=== PATIENT | male | born 1945 | race Caucasian/White ===

== ENCOUNTER 2018-03-15 06:36 | Day surgery (SDC) | payer MEDICARE, OTHER ==
[~2018-03-15 06:36] MED LIST: ACETAMINOPHEN 1,000 MG/100 ML BTL IV ONE
[2018-03-15] MEDS ORDERED: KETOROLAC 30 MG/ML VIAL IVP ONE (06:37)
[2018-03-15] MEDS ORDERED: MIDAZOLAM HCL 2MG/2ML VIAL IV ONE (06:37)
[2018-03-15] MEDS ORDERED: BUPIVACAINE 0.5% W/EPI MPF 30 ML VIAL IVP ONE (06:37)
[2018-03-15] MEDS ORDERED: LABETALOL HCL 5MG/ML, 20ML VIAL IV ONE (06:37)
[2018-03-15] MEDS ORDERED: BUPIVACAINE 0.5% (5MG/ML) PF 30ML VIAL IVP ONE (06:37)
[2018-03-15] MEDS ORDERED: DEXAMETHASONE 4 MG/ML 1ML VIAL IVP ONE ×2 (06:37)
[2018-03-15] MEDS ORDERED: GLYCOPYRROLATE 0.2 MG/ML ML IV ONE (06:37)
[2018-03-15] MEDS ORDERED: BUPIVACAINE LIPOSOME/PF 133MG/10ML VIAL IV ONE (06:37)
[2018-03-15] MEDS ORDERED: PROPOFOL 10 MG/ML VIAL IV ONE (06:37)
[2018-03-15] MEDS ORDERED: CEFAZOLIN 2 Gram 2 GM/50 ML BAG IVPB ONE (06:37)
[2018-03-15] MEDS ORDERED: MORPHINE SULFATE PF 10MG/10ML VIAL IV ONE (06:37)
[2018-03-15] MEDS ORDERED: KETAMINE HCL 100MG/1ML VIAL INJ ONE (06:37)
--- NOTE | 2018-03-16 08:40 | Operative Note ---
DATE OF SURGERY: 03/15/2018 PREOPERATIVE DIAGNOSIS: Left shoulder impingement. POSTOPERATIVE DIAGNOSES: 1. Partial tear of the long head of the biceps tendon, left shoulder. 2. Moderate synovitis, left shoulder. 3. Profound external impingement, left shoulder. 4. Arthrosis left distal clavicle. OPERATION: 1. Left shoulder arthroscopy with interarticular debridement and synovectomy. 2. Left shoulder open acromioplasty, CA ligament resection, subacromial bursectomy. 3. Left shoulder distal clavicle resection. Staff Surgeon: Jameson Guzman MD Anesthesia: Scalene block with sedation. Individual Considerations: None. PROCEDURE: The patient was taken to the operating room, placed supine on the operating room table. He had had a prior induction of a block along with given IV sedation. He was then placed in a semi-seated beach chair position. His left arm and shoulder were prepped and draped in the usual fashion. The patient had a posterior portal identified for arthroscopy. Skin was infiltrated with 0.5% Marcaine with epinephrine prior. An 18-gauge spinal needle was easily placed in the joint, and the joint was inflated with normal saline with a 60-mL syringe. A stab wound was made, and a blunt-tipped trocar for the scope was placed in the joint. The joint was inflated with normal saline. An anterior accessory portal was then made just inferior to the intact long head of the biceps tendon in a retrograde fashion with a Wissinger cooper, and the joint was irrigated out. The patient had an obvious partial tear of the long head of the biceps tendon with an unstable flap I would say involving about 20% of the tendon. This was debrided with a shaver. Quite a bit of synovitis anteriorly which was debrided. He had a superior labral tear which was superior-posterior I would say going from 11-o'clock to 2-o'clock. This was debrided to a stable rim. The glenohumeral joint was normal. Subscap was normal. The rotator cuff underneath was injected but there was no tear. No loose bodies or significant synovitis was seen in the inferior pouch. The joint was irrigated out and portals were closed with juju. The patient had an anterior approach to the subacromial space and distal clavicle. Skin was again infiltrated with 0.5% Marcaine with epinephrine prior. Sharp dissection carried down through skin and subcutaneous tissues. Small veins were coagulated with a Bovie. An anterior deltoid interval was developed. Care was taken not to split the deltoid more than about 4 cm distal to the anterior tip of the acromion to prevent injury to the axillary nerve. Once in the subacromial space, there was a large spur of the AC joint and the anterior clavicle and the anterior acromion. Very thickened, diffusely thickened bursa. The deltoid was then taken subperiosteally off the anterior aspect of the acromion, over the top of the intact CA ligament, and off the anterior aspect of the degenerated distal clavicle. CA ligament was resected with a Bovie. Distal clavicle was resected with an oscillating saw taking about 1 cm. He had downsloping acromion with a large anterior spur and spurs extending into the AC joint. An anterior acromioplasty was performed taking about a centimeter, most of this being spur, and tapering towards posteromedially to include the spurs at the AC joint. The undersurface was then smoothed with a rasp. A large thickened bursa was debrided out. I now had a good look at the rotator cuff. It looked contused and some areas macerated by the spurs but there was nothing to repair. I put the shoulder through a full range of motion to ensure no further impingement. After irrigation, deltoid and reattached to the remaining acromion with multiple interrupted #2 Vicryl going directly through the bony acromion. The periosteal cup of the distal clavicle was closed with running #2 Vicryl. Anterior deltoid interval was closed with running #1 Vicryl. Subcu was closed with 2-0 plus Vicryl and skin was closed with juju. An 18-gauge spinal needle was placed in the subacromial space. About 15 mL of 0.5% Marcaine with epinephrine along with 10 mg of morphine and 40 mg of Depo-Medrol were injected and a sterile bulky compressive dressing and sling were applied. The patient tolerated the procedure well. Needle and sponge counts were correct. Estimated blood loss was minimal. He was taken back to recovery in good condition. There were no complications. [facility]
== END 2018-03-15 11:05 | disposition home or self-care (01) ==
LOC: SUR 06:36
PROVIDERS: ATTEND Orthopaedic Surgery
DX: M66.829 Spontaneous rupture of other tendons, unspecified upper arm (principal); M65.812 Other synovitis and tenosynovitis, left shoulder; M19.012 Primary osteoarthritis, left shoulder; I10 Essential (primary) hypertension; J44.9 Chronic obstructive pulmonary disease, unspecified; K21.9 Gastro-esophageal reflux disease without esophagitis; J45.909 Unspecified asthma, uncomplicated
CPT/HCPCS: 29823; 23130; 01630; J1885; J0690; C9290; J3490